=== PATIENT | male | born 1985 | race Caucasian/White ===

== ENCOUNTER 2017-12-12 16:55 | Inpatient (IN) | payer BC, OTHER ==
[~2017-12-12] VITALS: Ht 185.4 cm; Wt 181.6 kg
[2017-12-12] MEDS ORDERED: PRED10TA22 PO (18:30)
[2017-12-12] MEDS ORDERED: LEVO500T80 PO (18:30)
[2017-12-12] MEDS ORDERED: NS IV 1000 ML 1,000 ML ONE (18:57)
[2017-12-12] MEDS ORDERED: ACETAMINOPHEN 500 MG TAB (TYLENOL) PO PRN (19:00)
[2017-12-12] MEDS: NS IV 1000 ML 1,000 ML IV SCH (19:03)
[2017-12-12] MEDS ORDERED: cefTRIAXone INJECTION 1,000 MG in NS (IVPB) 100 ML IV NR (19:07)
[2017-12-12 19:27] LABS: BASOPHILS % (AUTO) 0 % (0-10); EOSINOPHILS % (AUTO) 0 % (0-10); HEMATOCRIT 46 % (40-54); HEMOGLOBIN 15.1 G/DL (13.3-17.7); LYMPHOCYTES # (AUTO) 0.7 X 10^3 (1.0-4.0); LYMPHOCYTES % (AUTO) 11 % (12-44); MEAN CORPUSCULAR HEMOGLOBIN 28 PG (25-34); MEAN CORPUSCULAR HGB CONC 33 G/DL (32-36); MEAN CORPUSCULAR VOLUME 83 FL (80-99); MEAN PLATELET VOLUME 9.7 FL (7.4-10.4); MONOCYTES # (AUTO) 0.4 X 10^3 (0.0-1.0); MONOCYTES % (AUTO) 6 % (0-12); NEUTROPHILS # (AUTO) 5.4 X 10^3 (1.8-7.8); NEUTROPHILS % (AUTO) 83 % (42-75); PLATELET COUNT 204 10^3/uL (130-400); RED BLOOD COUNT 5.48 10^6/uL (4.35-5.85); RED CELL DISTRIBUTION WIDTH 14.9 % (10.0-14.5); WHITE BLOOD COUNT 6.5 10^3/uL (4.3-11.0)
[2017-12-12] MEDS ORDERED: AZITHROMYCIN INJECTION 500 MG in NS (IVPB) 250 ML IV NR (20:00)
[2017-12-12 20:59] VITALS: BP 142/64
[2017-12-13] VITALS: BP 122/58
[2017-12-13 04:00] VITALS: BP 139/65
[2017-12-13 08:00] VITALS: BP 132/61
[2017-12-13] MEDS: RT-ALBUTEROL SULF 2.5 MG/3 ML PRE-MIX VIAL INH SCH ×3 (08:20→19:11)
[2017-12-13] MEDS: NS IV 1000 ML 1,000 ML IV SCH (08:49)
--- NOTE | 2017-12-13 11:15 | History & Physical-Hospitalist ---
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 He is a current smoker of which I talked about cessation already. He reports that he has had a fever and weakness for several days and a severe cough and presented to [facility] found to have a pneumonia placed on appropriate antibiotics and steroids but he continued to worsen and presented back to [facility] and they quickly call the hospitalist 1 call to have him directly admitted. I have asked Dr. Ramos pulmonology to be consulted due to severe respiratory risk for failure. Source: patient Exam Limitations: no limitations Date Seen 12/13/17 Time Seen by Provider: 10:30 Attending Physician Adolfo Betancur MD PCP No,Local Physician Referring Physician Date of Admission December 12, 2017 at 17:38 Home Medications & Allergies Home Medications Reviewed patient Home Medication Reconciliation performed by pharmacy medication reconciliations metal technician and/or nursing. Patients Allergies have been reviewed. 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) Alcohol Use: Denies Use Recreational Drug Use: No Smoking Status: Current Everyday Smoker Type Used: Cigarettes Physical Abuse Screen: No Sexual Abuse: No Recent Foreign Travel: No Contact w/other who traveled: No Recent Hopitalizations: No Recent Infectious Disease Expo: No Seasonal Allergies Seasonal Allergies: No Past Medical History History of Blood Disorders: No Family History Hypertension Review of Systems Constitutional: see HPI, fever, malaise, weakness EENTM: no symptoms reported Respiratory: see HPI, dyspnea on exertion, short of breath, wheezing Cardiovascular: no symptoms reported Gastrointestinal: no symptoms reported Genitourinary: no symptoms reported Musculoskeletal: no symptoms reported Skin: no symptoms reported Psychiatric/Neurological: No Symptoms Reported All Other Systems Reviewed Negative Unless Noted: Yes Physical Exam Physical Exam Vital Signs Vital Signs - First Documented 12/12/17 12/12/17 18:17 20:59 Temp 100.2 Pulse 99 Resp 20 B/P (MAP) 142/64 (90) Pulse Ox 92 O2 Delivery Nasal Cannula O2 Flow Rate 2.00 Capillary Refill : General Appearance: No Apparent Distress, WD/WN, Chronically ill, Obese ( morbid BMI 52) Neck: Full Range of Motion, Normal Inspection, Non Tender, Supple Respiratory: Chest Non Tender, No Accessory Muscle Use, No Respiratory Distress , Crackles, Decreased Breath Sounds, Wheezing Cardiovascular: Regular Rate, Rhythm, No Edema, No Gallop, No JVD, No Murmur, Normal Peripheral Pulses Gastrointestinal: Non Tender, Soft Back: Normal Inspection, No CVA Tenderness, No Vertebral Tenderness Extremity: Normal Capillary Refill, Normal Inspection, Normal Range of Motion, Non Tender, No Calf Tenderness, No Pedal Edema Neurologic/Psychiatric: Alert, Oriented x3, No Motor/Sensory Deficits, Normal Mood/Affect Skin: Normal Color, Warm/Dry Lymphatic: No Adenopathy Results Results/Procedures Labs Laboratory Tests 12/12/17 19:15 12/13/17 12:02 Patient resulted labs reviewed. Assessment/Plan Admission Diagnosis Pneumonia Plan: Recheck CXR CT chest per Dr Ramos Check ABG ECHO Check troponin Check labs in am Lovenox Dr Ramos is appreciated Abx Steroids Pulmicort Admission Status: Inpatient Order (span 2 midnights) Reason for Inpatient Admission: Severe COPD suspected requring IV abx and IV steroids and Pulmo consultation along with CT chest Diagnosis/Problems Diagnosis/Problems (1) Pneumonia Status: Acute Qualifiers: Pneumonia type: due to unspecified organism Laterality: unspecified laterality Lung location: unspecified part of lung Qualified Codes: J18.9 - Pneumonia, unspecified organism (2) COPD exacerbation Status: Acute (3) Obesities, morbid Status: Chronic (4) Smoker Status: Chronic Clinical Quality Measures DVT/VTE Risk/Contraindication: Risk Factor Score Per Nursin RFS Level Per Nursing on Admit: 3=High ANGELIKA MILLARD DO December 13, 2017 11:15
--- NOTE | 2017-12-13 11:40 | Pulmonary Consultation ---
History of Present Illness History of Present Illness Date of Consultation 12/13/17 11:38 Time Seen by Provider: 11:38 Date of Admission History of Present Illness 32yo presented as direct admit from Dr. Mesa office secondary to worsening SOB and found to be hypoxic. PT is currently requiring 3 liters of oxygen. He was 86% on RA. SOB started on Monday and has worsened. 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 He does currently smoke however has not been diagnosed with any lung disease. He denies fever and has no leukocytosis. I am consulted for pulmonary management. Allergies and Home Medications Allergies Coded Allergies: No Known Drug Allergies (Unverified , 12/12/17) Home Medications Levofloxacin 500 Mg Tablet, 500 MG PO DAILY, (Reported) Past Bugzsjj-Nzguvr-Bqodse Hx Patient Social History Alcohol Use: Denies Use Recreational Drug Use: No Smoking Status: Current Everyday Smoker Type Used: Cigarettes Recent Foreign Travel: No Contact w/Someone Who Travel: No Recent Infectious Disease Expo: No Recent Hopitalizations: No Seasonal Allergies Seasonal Allergies: No Past Medical History Surgeries: No Respiratory: No Cardiac: No Neurological: No Genitourinary: No Gastrointestinal: No Musculoskeletal: No Endocrine: No HEENT: No Cancer: No Psychosocial: No Integumentary: No Blood Disorders: No Review of Systems Time Seen by Provider: 11:59 Constitutional: Sweats, Weakness, Malaise; No: Fever, Chills, Other Eyes: No: Pain, Vision change, Conjunctivae inflammation, Eyelid inflammation, Other, Redness ENT: No: Ear pain, Ear discharge, Nose pain, Nose discharge, Nose congestion, Mouth pain, Mouth swelling, Throat pain, Throat swelling, Other Respiratory: Cough, Shortness of breath, SOB with excertion, Wheezing, Sputum; No: Hemoptysis Cardiovascular: Palpitations, Paroxysmal Noc. Dyspnea, Lt Headedness Neurological: Weakness Exam Exam Vital Signs Date Time Temp Pulse Resp B/P (MAP) Pulse Ox O2 Delivery O2 Flow Rate FiO2 12/13/17 09:00 94 Nasal Cannula 3.00 12/13/17 08:21 94 Nasal Cannula 3.00 12/13/17 08:00 97.9 84 20 132/61 (84) 95 Nasal Cannula 3.00 12/13/17 04:00 98.8 89 20 139/65 (89) 96 Nasal Cannula 3.00 12/13/17 00:00 99.3 83 18 122/58 (79) 95 Nasal Cannula 1.00 12/12/17 21:19 86 Nasal Cannula 1.00 12/12/17 21:00 Nasal Cannula 1.00 12/12/17 20:59 100.2 99 20 142/64 (90) 92 Nasal Cannula 1.00 12/12/17 18:17 Nasal Cannula 2.00 I & O 12/13/17 07:00 Intake Total 950 ml Output Total 450 ml Balance 500 ml General Appearance: Anxious, Mild Distress HEENT: Normal ENT Inspection, Pharynx Normal Respiratory: Chest Non Tender, Normal Breath Sounds, No Accessory Muscle Use, No Respiratory Distress Cardiovascular: Regular Rate, Rhythm Gastrointestinal: normal bowel sounds, non tender, soft, no organomegaly Extremity: Normal Capillary Refill, Normal Inspection, No Pedal Edema Neurologic/Psychiatric: Alert, Oriented x3 Skin: Normal Color, Warm/Dry Lymphatic: No Adenopathy Results Lab Laboratory Tests 12/12/17 19:15 Assessment/Plan Assessment/Plan Acute SOB with hypoxia -Check Stat chest CTA r/o PE -Check labs including BNP -Check Bilateral dopplers Morbid obesity r/o OHS -Check ABG 255 FRANKY VICENTE DO December 13, 2017 11:40
[2017-12-13 12:11] LABS: HEMOGLOBIN 14.6 G/DL (13.3-17.7); MEAN PLATELET VOLUME 9.3 FL (7.4-10.4); RED BLOOD COUNT 5.24 10^6/uL (4.35-5.85); RED CELL DISTRIBUTION WIDTH 14.8 % (10.0-14.5); WHITE BLOOD COUNT 6.2 10^3/uL (4.3-11.0)
[2017-12-13] MEDS ORDERED: NS 250 ML (IVPB) BAG IV ONE (12:15)
[2017-12-13] MEDS ORDERED: IOHEXOL 350 MG/ML 150 ML (OMNIPAQUE 350) VIAL IV ONE (12:15)
[2017-12-13 12:29] LABS: BUN/CREATININE RATIO 14; CALCIUM 8.3 MG/DL (8.5-10.1); CARBON DIOXIDE 31 MMOL/L (21-32); CHLORIDE 103 MMOL/L (98-107); CREATININE SERUM 0.77 MG/DL (0.60-1.30); GFR ESTIMATED > 60; GLUCOSE 116 MG/DL (70-105); MAGNESIUM 2.1 MG/DL (1.8-2.4); PHOSPHORUS 2.9 MG/DL (2.3-4.7); POTASSIUM 3.9 MMOL/L (3.6-5.0); SODIUM 142 MMOL/L (135-145)
--- NOTE | 2017-12-13 12:58 | Diagnostic Imaging Report ---
INDICATION: Pneumonia. Hypoxia. COMPARISON: Followup CTA chest from later same day. FINDINGS: Frontal and lateral radiographic views of the chest were obtained. Cardiac silhouette and pulmonary vasculature are within normal limits. There are patchy alveolar opacities bilaterally. These are much more conspicuous on CT chest performed from same day. There is no large effusion or pneumothorax. Bony structures show no gross acute abnormalities. IMPRESSION: 1. Scattered patchy bilateral alveolar infiltrates. Again, these are more conspicuous on followup CT chest from later same day. Dictated by: Dictated on workstation # [id number]
[2017-12-13] MEDS ORDERED: CATHETER FLUSH 10 ML SYR IV PRN (13:00)
[2017-12-13] MEDS ORDERED: ONDANSETRON 4 MG/2 ML (SDV) Z0FRAN IVP PRN (13:00)
[2017-12-13] MEDS ORDERED: IBUPROFEN TABLET 200 MG TAB PO PRN (13:00)
[2017-12-13] MEDS ORDERED: HYDROcodone/APAP 5 MG/325 MG (LORTAB) TAB PO PRN (13:00)
[2017-12-13] MEDS ORDERED: DOCUSATE SODIUM 100 MG (COLACE) CAP PO PRN (13:00)
[2017-12-13] MEDS ORDERED: ACETAMINOPHEN 500 MG TAB (TYLENOL) PO PRN (13:00)
[2017-12-13] MEDS: CATHETER FLUSH 10 ML SYR IV SCH ×2 (13:04→21:19)
[2017-12-13] MEDS: ENOXAPARIN 40 MG/0.4 ML (LOVENOX) SYR SC SCH (13:04)
--- NOTE | 2017-12-13 13:19 | Diagnostic Imaging Report ---
PROCEDURE: CT angiography of the chest with contrast. TECHNIQUE: Multiple contiguous axial images were obtained through the chest after uneventful bolus administration of intravenous contrast. Reconstructed CTA MIP acquisitions were also performed. INDICATION: Pneumonia, shortness of air, coughing. COMPARISON: Chest x-ray from the same day. FINDINGS: The pulmonary arteries are diagnostic to the lobar level due to body habitus and suboptimal bolus timing. No filling defects are seen to suggest a pulmonary embolus. The main pulmonary artery is normal in size. There is motion artifact but the aorta appears normal in size as well. The heart is upper normal in size. No pericardial effusion is seen. There are multiple prominent mediastinal lymph nodes, the largest including a 2.3 cm right paratracheal lymph node. There are multiple prominent right hilar lymph nodes as well. Patchy groundglass and nodular airspace opacities are seen in the lungs bilaterally. There is respiratory motion artifact present. There is no pleural effusion or pneumothorax. The osseous structures are unremarkable. No acute abnormalities are seen in the included portions of the upper abdomen. There is a very large mass which is partially visualized in the left neck, which demonstrates heterogeneous enhancement and measures up to 6.3 x 5.6 cm on these images. This likely originates from the thyroid. IMPRESSION: 1. Groundglass and nodular airspace opacities in the lungs bilaterally, consistent with a bronchopneumonia. 2. Mildly large mediastinal and right hilar lymph nodes, most likely reactive. 3. Partially visualized large heterogeneous mass in the left neck, likely from the thyroid. Recommend followup with ultrasound. 4. No central pulmonary embolus is seen. Dictated by: Dictated on workstation # [id number]
[2017-12-13] MEDS: RT-BUDESONIDE NEBS 0.5 MG/2ML (PULMICORT) AMP INH SCH ×2 (13:29→19:11)
--- NOTE | 2017-12-13 13:49 | Diagnostic Imaging Report ---
PROCEDURE: US left lower extremity venous. TECHNIQUE: Multiple real-time grayscale images were obtained over the left lower extremity in various projections. Additional duplex Doppler and color Doppler images were also obtained. INDICATION: Pain in the left leg. COMPARISON: None. FINDINGS: Evaluation is somewhat suboptimal due to body habitus. The left common femoral vein, femoral vein, deep femoral vein, and popliteal vein are normal in appearance. These vessels show normal compressibility, color flow and doppler augmentation. The visualized deep calf veins demonstrate no distinct intraluminal thrombus. IMPRESSION: 1. No sonographic evidence of deep venous thrombosis in the left lower extremity. Dictated by: Dictated on workstation # [id number]
[2017-12-13 13:50] LABS: ABG BASE EXCESS 6.6 MMOL/L (-2.5-2.5); ABG OXYGEN SATURATION 92 % (94-100); ABG PCO2 61 MMHG (35-45); ABG PO2 64 MMHG (79-93)
[2017-12-13 13:52] LABS: ABG PH 7.34 (7.37-7.43); ALLENS TEST YES-POS; INSPIRED O2 1.5LPM; VENTILATOR NO
[2017-12-13 13:53] LABS: PATIENT TEMP 98.5
[2017-12-13 14:00] VITALS: BP 132/61
[2017-12-13 15:40] VITALS: BP 125/56
[2017-12-13] MEDS: methylPREDNISolone 125 MG (Solu-MEDROL) VIAL IV SCH (17:01)
[2017-12-13] MEDS: inSUlin ASPART (NovoLOG) 1 UNIT/0.01 ML (CHARGE PER UNIT) SC SCH ×2 (17:01→21:19)
[2017-12-13] MEDS ORDERED: methylPREDNISolone 40 MG/ML (Solu-MEDROL) VIAL IV SCH (18:00)
[2017-12-13] MEDS ORDERED: cefTRIAXone INJECTION 1,000 MG in NS (IVPB) 100 ML IV SCH (19:00)
[2017-12-13 19:35] VITALS: BP 140/62
[2017-12-13] MEDS: cefTRIAXone INJECTION 1,000 MG in NS (IVPB) 50 ML IV SCH (19:47)
[2017-12-13] MEDS ORDERED: AZITHROMYCIN INJECTION 500 MG in NS (IVPB) 250 ML IV SCH (20:00)
[2017-12-14] VITALS: BP 128/60
[2017-12-14] MEDS: methylPREDNISolone 125 MG (Solu-MEDROL) VIAL IV SCH ×2 (00:20→05:55)
[2017-12-14 05:48] LABS: BASOPHILS % (AUTO) 0 % (0-10); EOSINOPHILS % (AUTO) 0 % (0-10); HEMATOCRIT 46 % (40-54); LYMPHOCYTES # (AUTO) 0.7 X 10^3 (1.0-4.0); LYMPHOCYTES % (AUTO) 14 % (12-44); MEAN CORPUSCULAR HEMOGLOBIN 28 PG (25-34); MEAN CORPUSCULAR HGB CONC 33 G/DL (32-36); MEAN CORPUSCULAR VOLUME 84 FL (80-99); MONOCYTES # (AUTO) 0.1 X 10^3 (0.0-1.0); MONOCYTES % (AUTO) 2 % (0-12); NEUTROPHILS # (AUTO) 4.3 X 10^3 (1.8-7.8); NEUTROPHILS % (AUTO) 84 % (42-75); PLATELET COUNT 238 10^3/uL (130-400); RED BLOOD COUNT 5.44 10^6/uL (4.35-5.85); RED CELL DISTRIBUTION WIDTH 14.7 % (10.0-14.5); WHITE BLOOD COUNT 5.1 10^3/uL (4.3-11.0)
[2017-12-14] MEDS: inSUlin ASPART (NovoLOG) 1 UNIT/0.01 ML (CHARGE PER UNIT) SC SCH ×4 (05:49→22:32)
[2017-12-14] MEDS: CATHETER FLUSH 10 ML SYR IV SCH ×3 (05:55→20:06)
--- NOTE | 2017-12-14 06:04 | Pulmonary Progress Note ---
Subjective Time Seen by Provider: 07:40 Subjective/Events-last exam No complications noted. Pt appears to be doing better. Exam Exam Vital Signs Date Time Temp Pulse Resp B/P (MAP) Pulse Ox O2 Delivery O2 Flow Rate FiO2 12/14/17 03:58 63 13 98 40.00 12/14/17 01:44 76 18 87 30.00 12/14/17 00:00 99.0 62 20 128/60 (82) 95 NIV Bilevel 12/13/17 23:21 67 20 97 30.00 12/13/17 21:00 Nasal Cannula 3.00 12/13/17 19:35 98.6 77 20 140/62 (88) 91 Nasal Cannula 3.00 12/13/17 19:19 92 Nasal Cannula 3.00 12/13/17 19:11 90 Nasal Cannula 3.00 12/13/17 18:09 93 Nasal Cannula 3.00 12/13/17 15:51 55 17 97 30.00 12/13/17 15:40 97.8 60 18 125/56 (79) 97 NIV Bilevel 12/13/17 14:07 75 19 96 30.00 12/13/17 14:00 98.4 84 20 132/61 (84) 95 NIV Bilevel 2.00 12/13/17 13:48 1.50 12/13/17 09:00 94 Nasal Cannula 3.00 12/13/17 08:21 94 Nasal Cannula 3.00 12/13/17 08:00 97.9 84 20 132/61 (84) 95 Nasal Cannula 3.00 I & O 12/14/17 07:00 Intake Total 4050 ml Output Total 1000 ml Balance 3050 ml General Appearance: No Apparent Distress, WD/WN, Chronically ill, Obese ( morbid BMI 52) HEENT: Normal ENT Inspection, Pharynx Normal Neck: Full Range of Motion, Normal Inspection, Non Tender, Supple Respiratory: Chest Non Tender, No Accessory Muscle Use, No Respiratory Distress , Crackles, Decreased Breath Sounds, Wheezing Cardiovascular: Regular Rate, Rhythm, No Edema, No Gallop, No JVD, No Murmur, Normal Peripheral Pulses Gastrointestinal: normal bowel sounds, non tender, soft, no organomegaly Extremity: Normal Capillary Refill, Normal Inspection, Normal Range of Motion, Non Tender, No Calf Tenderness, No Pedal Edema Neurologic/Psychiatric: Alert, Oriented x3, No Motor/Sensory Deficits, Normal Mood/Affect Skin: Normal Color, Warm/Dry Lymphatic: No Adenopathy Results Lab Laboratory Tests 12/12/17 19:15 12/13/17 12:02 12/14/17 05:29 Assessment/Plan Assessment/Plan Acute SOB with hypoxia -CT scan reviewed Acute on Chronic respiratory failure with respiratory acidosis and hypoxemia -Noninvasive ventilation -change solumedrol to prednisone taper. Pneumonia -Continue Azithromycin Neck Mass -Check US of thyroid -Check free T 4 and TSH, PTH Allergic rhinitis -Singulair, Zyrtec Morbid obesity r/o OHS -ABG shows C02 65 -Pt will benefit from noninvasive home ventilation. PT is at increased risk of cardiac and multiple hospitalizations. -I have contacted [facility] to arrange vent to mask [id number] FRANKY VICENTE DO December 14, 2017 06:04
[2017-12-14 06:22] LABS: ALANINE AMINOTRANSFERASE 40 U/L (0-55); ALBUMIN 3.8 GM/DL (3.2-4.5); ALKALINE PHOSPHATASE 109 U/L (40-136); BILIRUBIN,TOTAL 0.3 MG/DL (0.1-1.0); BUN/CREATININE RATIO 14; CALCIUM 8.6 MG/DL (8.5-10.1); CARBON DIOXIDE 30 MMOL/L (21-32); CHLORIDE 104 MMOL/L (98-107); CREATININE SERUM 0.71 MG/DL (0.60-1.30); GFR ESTIMATED > 60; GLUCOSE 151 MG/DL (70-105); POTASSIUM 4.8 MMOL/L (3.6-5.0); SODIUM 143 MMOL/L (135-145)
[2017-12-14] MEDS: RT-BUDESONIDE NEBS 0.5 MG/2ML (PULMICORT) AMP INH SCH ×2 (07:38→22:56)
[2017-12-14] MEDS: RT-ALBUTEROL SULF 2.5 MG/3 ML PRE-MIX VIAL INH SCH ×3 (07:38→22:56)
[2017-12-14 08:00] VITALS: BP 132/74
[2017-12-14] MEDS: LORATADINE (CLARITIN) 10 MG TAB PO SCH (09:54)
--- NOTE | 2017-12-14 11:51 | Progress Note-Hospitalist ---
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 He is a current smoker of which I talked about cessation already. He reports that he has had a fever and weakness for several days and a severe cough and presented to [facility] found to have a pneumonia placed on appropriate antibiotics and steroids but he continued to worsen and presented back to [facility] and they quickly call the hospitalist 1 call to have him directly admitted. I have asked Dr. Ramos pulmonology to be consulted due to severe respiratory risk for failure. Subjective/Events-last exam Patient doing much better IV steroids are improving respiratory status Reviewed CT angiogram Noted ABG Mastalgia vent managed by Dr. Ramos Thyroid studies pending along with thyroid ultrasound due to possible mass left side We'll plan for discharge tomorrow if all goes well Hemoglobin A1c is 6.1 Review of Systems General: Malaise Pulmonary: Dyspnea, Cough Objective Exam Vital Signs Vital Signs Date Time Temp Pulse Resp B/P (MAP) Pulse Ox O2 Delivery O2 Flow Rate FiO2 12/14/17 08:00 97.2 58 12 132/74 (93) 98 NIV Bilevel 12/14/17 07:44 40 12/14/17 07:38 40.00 Capillary Refill : General Appearance: No Apparent Distress, WD/WN, Chronically ill, Obese Respiratory: Lungs Clear, Normal Breath Sounds, Decreased Breath Sounds Cardiovascular: Regular Rate, Rhythm, No Edema Neurologic/Psychiatric: Alert, Oriented x3, No Motor/Sensory Deficits, Normal 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 Assessment/Plan Assessment and Plan Assess & Plan/Chief Complaint Assessment: Pneumonia Acute on chronic respiratory failure due to obesity hypoventilation syndrome Thyroid mass Early DM Plan: Continue IV steroids and abx Monitor closely Vent to mask set up Diagnosis/Problems Diagnosis/Problems (1) Pneumonia Status: Acute Qualifiers: Pneumonia type: due to unspecified organism Laterality: unspecified laterality Lung location: unspecified part of lung Qualified Codes: J18.9 - Pneumonia, unspecified organism (2) COPD exacerbation Status: Acute (3) Obesities, morbid Status: Chronic (4) Smoker Status: Chronic (5) Thyroid mass Status: Acute (6) Diabetes mellitus Status: Acute Qualifiers: Diabetes mellitus type: type 2 Diabetes mellitus superintendent terminal insulin use: without superintendent terminal use Diabetes mellitus complication status: without complication Qualified Codes: E11.9 - Type 2 diabetes mellitus without complications (7) Hypoventilation associated with obesity Status: Acute Clinical Quality Measures DVT/VTE Risk/Contraindication: Risk Factor Score Per Nursin RFS Level Per Nursing on Admit: 3=High ANGELIKA MILLARD DO December 14, 2017 11:51
[2017-12-14] MEDS: ENOXAPARIN 40 MG/0.4 ML (LOVENOX) SYR SC SCH (12:55)
[2017-12-14] MEDS: predniSONE 10 MG TAB PO SCH (12:55)
--- NOTE | 2017-12-14 13:22 | Diagnostic Imaging Report ---
PROCEDURE: US Thyroid. TECHNIQUE: Multiple real-time grayscale images were obtained of the thyroid in various projections. INDICATION: Neck mass. FINDINGS: There are no previous thyroid ultrasound examinations available for comparison. The CTA chest exam performed on 12/13/2017 did note a 5.6 x 6.3 cm mass arising from the left lobe of the thyroid. On this exam, there are two large nodules, one in each lobe of the thyroid. The nodule on the right measures 6.8 x 3.7 x 5.2 cm while the left-sided nodule is estimated to be 7.1 x 3.8 x 5.2 cm. Both of these nodules appear to be solid. The thyroid gland itself is also enlarged with the right lobe measuring 6.9 x 4.4 x 6.0 cm while the left lobe estimated to be 8.0 x 4.8 x 5.9 cm (normal gland size 4-5 x 2 x 2 cm or less). Even though both of these nodes are solid and quite large, I do suspect that they are most likely benign. Even so, unless there are previous thyroid ultrasound examinations or other imaging studies to demonstrate that these findings are stable, then an ultrasound-guided biopsy of each nodule would be recommended. IMPRESSION: The thyroid gland is enlarged, and there are two large solid nodules within each lobe. While these nodules are most likely benign, an ultrasound-guided biopsy would be recommended unless there are previous studies to document that these nodules are stable.. Dictated by: Dictated on workstation # [id number]
[2017-12-14 15:40] VITALS: BP 147/70
[2017-12-14] MEDS ORDERED: AZITHROMYCIN 250 MG TAB (ZITHROMAX) PO SCH (20:00)
[2017-12-14] MEDS: cefTRIAXone INJECTION 1,000 MG in NS (IVPB) 50 ML IV SCH (20:05)
[2017-12-14 20:30] VITALS: BP 153/73
[2017-12-14] MEDS ORDERED: MONTELUKAST 10 MG (SINGULAIR) TAB PO SCH (21:00)
[2017-12-14 23:11] VITALS: BP 131/64
--- NOTE | 2017-12-15 06:11 | Pulmonary Progress Note ---
Subjective Time Seen by Provider: 06:17 Subjective/Events-last exam persistent SOB and NPC. Exam Exam Vital Signs Date Time Temp Pulse Resp B/P (MAP) Pulse Ox O2 Delivery O2 Flow Rate FiO2 12/15/17 03:50 63 13 95 40.00 12/15/17 01:06 60 15 95 40.00 12/14/17 23:11 98.6 59 16 131/64 (86) 95 NIV Bilevel 12/14/17 22:56 60 19 98 40.00 12/14/17 21:00 Nasal Cannula 3.00 12/14/17 20:30 99.1 71 16 153/73 (99) 95 NIV Bilevel 12/14/17 15:40 99.1 71 12 147/70 (95) 95 Nasal Cannula 3.00 12/14/17 14:16 92 Nasal Cannula 3.00 12/14/17 09:00 98 Nasal Cannula 3.00 12/14/17 08:00 97.2 58 12 132/74 (93) 98 NIV Bilevel 12/14/17 07:44 95 NIV Bilevel 40 12/14/17 07:38 54 12 95 40.00 I & O 12/15/17 07:00 Intake Total 1460 ml Output Total 700 ml Balance 760 ml General Appearance: No Apparent Distress, WD/WN, Chronically ill, Obese HEENT: Normal ENT Inspection, Pharynx Normal Neck: Full Range of Motion, Normal Inspection, Non Tender, Supple Respiratory: Lungs Clear, Normal Breath Sounds, Decreased Breath Sounds Cardiovascular: Regular Rate, Rhythm, No Edema Gastrointestinal: normal bowel sounds, non tender, soft, no organomegaly Extremity: Normal Capillary Refill, Normal Inspection, Normal Range of Motion, Non Tender, No Calf Tenderness, No Pedal Edema Neurologic/Psychiatric: Alert, Oriented x3, No Motor/Sensory Deficits, Normal Mood/Affect, 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 Pneumonia -Continue Azithromycin Neck Mass -Check US of thyroid -Check free T 4 and TSH, PTH Allergic rhinitis -Singulair, Zyrtec Morbid obesity r/o OHS -ABG shows C02 65 -Pt will benefit from noninvasive home ventilation. PT is at increased risk of cardiac and multiple hospitalizations. -I have contacted Rad[facility] [facility] to arrange vent to mask. She is trying to get it approved through insurance. Insurance requires [place] and this can take up to 10 days. 233 FRANKY VICENTE DO December 15, 2017 06:11
[2017-12-15] MEDS: CATHETER FLUSH 10 ML SYR IV SCH (06:48)
[2017-12-15] MEDS: inSUlin ASPART (NovoLOG) 1 UNIT/0.01 ML (CHARGE PER UNIT) SC SCH ×2 (06:48→11:54)
[2017-12-15] MEDS: RT-ALBUTEROL SULF 2.5 MG/3 ML PRE-MIX VIAL INH SCH (07:43)
[2017-12-15] MEDS: RT-BUDESONIDE NEBS 0.5 MG/2ML (PULMICORT) AMP INH SCH (07:43)
[2017-12-15 08:00] VITALS: BP 142/66
[2017-12-15] MEDS: LORATADINE (CLARITIN) 10 MG TAB PO SCH (10:03)
[2017-12-15] MEDS ORDERED: PRED10TA22 PO (10:48)
[2017-12-15] MEDS ORDERED: MONT10TA24 PO (10:48)
[2017-12-15] MEDS ORDERED: CEFD300C3 PO (10:48)
[2017-12-15] MEDS ORDERED: BUDE0.5A INH (10:48)
--- NOTE | 2017-12-15 10:50 | Discharge Summary-Hospitalist ---
Diagnosis/Chief Complaint Date of Admission December 12, 2017 at 17:38 Date of Discharge Discharge Date: December 15, 2017 Admission Diagnosis Pneumonia Plan: Recheck CXR CT chest per Dr Ramos Check ABG ECHO Check troponin [facility] Abx Steroids Pulmicort Discharge Diagnosis (1) Pneumonia Status: Acute (2) COPD exacerbation Status: Acute (3) Obesities, morbid Status: Chronic (4) Smoker Status: Chronic (5) Thyroid mass Status: Acute (6) Diabetes mellitus Status: Acute (7) Hypoventilation associated with obesity Status: Acute Discharge Summary Discharge Physical Exam Allergies: Coded Allergies: No Known Drug Allergies (Unverified , 12/12/17) Vitals & I&Os Vital Signs Date Time Temp Pulse Resp B/P (MAP) Pulse Ox O2 Delivery O2 Flow Rate FiO2 12/15/17 14:30 82 20 142/66 96 Nasal Cannula 3.00 12/15/17 08:00 97.7 12/14/17 07:44 40 General Appearance: Alert, Oriented X3, Cooperative HEENT: Atraumatic, PERRLA Respiratory: Clear to Auscultation, Normal Air Movement Cardiovascular: Regular Rate, Normal S1, Normal S2 Abdominal: Soft Neuro: Normal Gait, Normal Speech, Strength at 5/5 X4 Ext Psych/Mental Status: Mental Status NL, Mood NL Hospital Course Hospital course: Patient had a standard hospital course after he failed one day of antibiotic treatment and prednisone regimen and nebulizer treatments when treated at [facility]. He was diagnosed with pneumonia and acute on chronic respiratory failure and presumed obesity hypoventilation syndrome. He did have acute exacerbation of COPD so IV steroids were initiated and Dr. Ramos was consulted for vent to mask arrangements due to suspected obesity hypoventilation syndrome. ABG confirmed this with pH of 7.34 and CO2 of 64. He progressed well IV steroids were maintained along with nebulized treatments and smoking cessation was recommended. Echocardiogram showed pulmonary arterial pressure of 30 and no evidence of any valvular problems or systolic dysfunction. CT angiogram showed no evidence of any PEs that did show incidental thyroid mass and thyroid ultrasound was revealed to have 2 solid nodules that look benign but likely will need fine-needle aspiration to verify. Overall he will have close follow-up with Dr. Ramos he will establish his medical care at [facility] on Monday afternoon next week and he will continue antibiotics to complete the antibiotic regimen along with steroid regimen and here he had albuterol in the nebulizer machine at home he will be on 3 L of oxygen on exertion that was ordered prior to discharge. Smoking cessation was strongly encouraged and he agreed. Labs (last 24 hrs) Laboratory Tests 12/15/17 06:43: Glucometer 112H 12/15/17 11:10: Glucometer 256H Patient resulted labs reviewed. Pending Labs Discussion & Recommendations Discharge Planning: <30 minutes discharge planning Discharge Home Medications: Active Scripts Active Budesonide 0.5 Mg/2 Ml Ampul.neb 0.5 Mg INH RTBID Cefdinir 300 Mg Capsule 300 Mg PO BID Prednisone 10 Mg Tab.ds.pk 10 Mg PO DAILY Take 6 tabs(60mg)daily,decrease by 1 tab(10MG)daily. Montelukast Sodium 10 Mg Tablet 10 Mg PO HS Instructions to patient/family Please see electronic discharge instructions given to patient. Clinical Quality Measures DVT/VTE Risk/Contraindication: Risk Factor Score Per Nursin RFS Level Per Nursing on Admit: 3=High Problem Qualifiers (1) Pneumonia: Pneumonia type: due to unspecified organism Laterality: unspecified laterality Lung location: unspecified part of lung Qualified Codes: J18.9 - Pneumonia, unspecified organism (2) Diabetes mellitus: Diabetes mellitus type: type 2 Diabetes mellitus penitentiary insulin use: without penitentiary use Diabetes mellitus complication status: without complication Qualified Codes: E11.9 - Type 2 diabetes mellitus without complications ANGELIKA MILLARD DO December 15, 2017 10:50
[2017-12-15] MEDS: ENOXAPARIN 40 MG/0.4 ML (LOVENOX) SYR SC SCH (11:53)
[2017-12-15] MEDS: predniSONE 10 MG TAB PO SCH (11:54)
[2017-12-15 14:30] VITALS: BP 142/66
== END 2017-12-15 14:30 | disposition home or self-care (01) | DRG 189 ==
LOC: 4TH 17:38
PROVIDERS: ADMIT Internal Medicine; ATTEND Internal Medicine
DX: J96.21 Acute and chronic respiratory failure with hypoxia (principal); J18.9 Pneumonia, unspecified organism; J44.0 Chronic obstructive pulmonary disease with (acute) lower respiratory infection; J44.1 Chronic obstructive pulmonary disease with (acute) exacerbation; E66.2 Morbid (severe) obesity with alveolar hypoventilation; E87.2 Acidosis; Z68.43 Body mass index [BMI] 50.0-59.9, adult; F17.210 Nicotine dependence, cigarettes, uncomplicated; J30.2 Other seasonal allergic rhinitis; R22.1 Localized swelling, mass and lump, neck; E11.9 Type 2 diabetes mellitus without complications
CPT/HCPCS: 36415; 36600; 71046; 71275; 76536; 80048; 80053; 82805; 82962; 83036; 83735; 83880; 83970; 84100; 84439; 84481; 84484; 85025; 85027; 93005; 93306; 94640; 94660; 94760; 94761

== ENCOUNTER 2018-02-12 07:49 | Outpatient (RCR) | payer BC ==
[~2018-02-12 07:49] MED LIST: BUDE0.5A INH; CEFD300C3 PO; LEVO500T80 PO; MONT10TA24 PO; PRED10TA22 PO
[2018-02-14] MEDS ORDERED: RT-ALBUTEROL SULF 2.5 MG/3 ML PRE-MIX VIAL ONE (09:08)
== END 2018-03-06 | disposition home or self-care (01) ==
LOC: RT 07:49
PROVIDERS: ATTEND Nurse Practitioner Family
DX: J45.909 Unspecified asthma, uncomplicated (principal)

== ENCOUNTER → 2018-02-14 | Outpatient (CLI) | payer BC ==
[~2018-02-14] MED LIST changes: +RT-ALBUTEROL SULF 2.5 MG/3 ML PRE-MIX VIAL INH ONE
== END ==
LOC: PULM 08:23
PROVIDERS: ATTEND Nurse Practitioner Family
DX: J45.909 Unspecified asthma, uncomplicated (principal)
CPT/HCPCS: 94060; 94726; 94729; 99211

== ENCOUNTER → 2018-02-16 | Outpatient (CLI) | payer BC ==
[~2018-02-16] VITALS: Ht 185.4 cm; Wt 181.4 kg
[~2018-02-16] MED LIST changes: -RT-ALBUTEROL SULF 2.5 MG/3 ML PRE-MIX VIAL INH ONE
[2018-02-16 09:10] VITALS: BP 134/84
[2018-02-16 09:40] VITALS: BP 134/80
--- NOTE | 2018-02-16 09:42 | Diagnostic Imaging Report ---
Indication: Right thyroid nodule. Sonographic guidance was provided for Dr. Chen for right thyroid nodule FNA. Images demonstrate a hypoechoic nodule in the right lobe. There appears to be a needle centered in the nodule. Impression: Ultrasound guidance for right thyroid FNA for Dr. Chen. Dictated by: Dictated on workstation # [id number]
--- NOTE | 2018-02-16 09:44 | Diagnostic Imaging Report ---
INDICATION: Left thyroid mass. PROCEDURE: Sonographic guidance was provided for Dr. Chen for a left thyroid mass FNA. Images demonstrate a large solid mass left lobe. An echogenic focus within the mass consistent with the needle tip is identified. IMPRESSION: Sonographic guidance for Dr. Chen for left thyroid FNA. Dictated by: Dictated on workstation # [id number]
== END ==
LOC: RAD 08:45
PROVIDERS: ATTEND Otolaryngology Otolaryngology/Facial Plastic Surgery
DX: E04.2 Nontoxic multinodular goiter (principal)
CPT/HCPCS: 76942

== ENCOUNTER → 2018-04-25 | Outpatient (CLI) | payer BC ==
[2018-04-25 08:08] LABS: BASOPHILS % (AUTO) 0 % (0-10); EOSINOPHILS # (AUTO) 0.1 10^3/uL (0.0-0.3); EOSINOPHILS % (AUTO) 2 % (0-10); HEMATOCRIT 42 % (40-54); HEMOGLOBIN 14.3 G/DL (13.3-17.7); LYMPHOCYTES # (AUTO) 1.6 X 10^3 (1.0-4.0); LYMPHOCYTES % (AUTO) 28 % (12-44); MEAN CORPUSCULAR HEMOGLOBIN 27 PG (25-34); MEAN CORPUSCULAR HGB CONC 34 G/DL (32-36); MEAN CORPUSCULAR VOLUME 81 FL (80-99); MEAN PLATELET VOLUME 9.9 FL (7.4-10.4); MONOCYTES # (AUTO) 0.4 X 10^3 (0.0-1.0); MONOCYTES % (AUTO) 7 % (0-12); NEUTROPHILS # (AUTO) 3.5 X 10^3 (1.8-7.8); NEUTROPHILS % (AUTO) 62 % (42-75); PLATELET COUNT 228 10^3/uL (130-400); RED BLOOD COUNT 5.21 10^6/uL (4.35-5.85); RED CELL DISTRIBUTION WIDTH 14.3 % (10.0-14.5); WHITE BLOOD COUNT 5.6 10^3/uL (4.3-11.0)
[2018-04-25 08:38] LABS: ALANINE AMINOTRANSFERASE 35 U/L (0-55); ALBUMIN 3.8 GM/DL (3.2-4.5); ALKALINE PHOSPHATASE 114 U/L (40-136); BILIRUBIN,TOTAL 0.5 MG/DL (0.1-1.0); BUN/CREATININE RATIO 17; CARBON DIOXIDE 26 MMOL/L (21-32); CHLORIDE 108 MMOL/L (98-107); CHOLESTEROL 107 MG/DL (< 200); CREATININE SERUM 0.71 MG/DL (0.60-1.30); GFR ESTIMATED > 60; GLUCOSE 81 MG/DL (70-105); HDL CHOLESTEROL 28 MG/DL (40-60); POTASSIUM 4.3 MMOL/L (3.6-5.0); SODIUM 141 MMOL/L (135-145); TOTAL PROTEIN 6.7 GM/DL (6.4-8.2); TRIGLYCERIDES 85 MG/DL (<150); VLDL CHOLESTEROL 17 MG/DL (5-40)
[2018-04-25 08:59] LABS: FREE T4 (FREE THYROXINE) 0.97 NG/DL (0.70-1.48)
== END ==
LOC: LAB 07:53
PROVIDERS: ATTEND Internal Medicine
DX: E11.9 Type 2 diabetes mellitus without complications (principal); E04.1 Nontoxic single thyroid nodule; D63.8 Anemia in other chronic diseases classified elsewhere
CPT/HCPCS: 36415; 80053; 80061; 83036; 84439; 84443; 85025

== ENCOUNTER 2018-06-11 13:05 | Outpatient (CLI) | payer BC | END 2018-06-11 13:30 | disposition home or self-care (01) | LOC: SLEEP 13:05 | PROVIDERS: ATTEND Internal Medicine | DX: Z01.818 Encounter for other preprocedural examination (principal); E66.01 Morbid (severe) obesity due to excess calories; Z68.43 Body mass index [BMI] 50.0-59.9, adult; R06.83 Snoring ==

== ENCOUNTER 2018-09-06 21:04 | Outpatient (CLI) | payer BC | END 2018-09-07 06:40 | disposition home or self-care (01) | LOC: SLEEP 21:04 | PROVIDERS: ATTEND Internal Medicine | DX: G47.33 Obstructive sleep apnea (adult) (pediatric) (principal); G47.10 Hypersomnia, unspecified; R06.83 Snoring | CPT/HCPCS: 95811 ==